=== PATIENT | female | born 1980 | race African-American/Black ===

== ENCOUNTER 2017-04-09 09:20 | Emergency (ER) | payer BC ==
[2017-04-09 09:32] VITALS: BP 118/70; PULSE 88; TEMP 99.4; BMI 24.5
--- NOTE | 2017-04-09 09:59 | PDOC ---
History of Present Illness - General Chief Complaint: Cold Symptoms Stated Complaint: COUGH, CONGESTION, BODY ACHES Time Seen by Provider: 04/09/17 09:51 History Source: Patient Exam Limitations: No Limitations - History of Present Illness Initial Comments: 04/09/17 09:55 Pt presents to the ED complaining of a 3 day history of nasal congestion, cough productive of yellow sputum, sore throat and myalgias. Also complains of subjective fevers at home. Complains of nausea and epigastric abdominal pain that occurs with cough only. Able to tolerate PO. 04/09/17 09:59 Past History - Past Medical History Allergies/Adverse Reactions: Allergies Allergy/AdvReac Type Severity Reaction Status Date / Time No Known Allergies Allergy Verified 04/09/17 09:27 Home Medications: Ambulatory Orders NK [No Known Home Medication] 04/09/17 Disorders: Yes (OVARIAN CYSTS) - Surgical History Abdominal Surgery: Yes (HERNIA REPAIR) - Suicide/Smoking/Psychosocial Hx Smoking Status: No Smoking History: Never smoked Number of Cigarettes Smoked Daily: 0 Hx Alcohol Use: No Drug/Substance Use Hx: No Substance Use Type: None Review of Systems - Review of Systems Able to Perform ROS?: Yes Is the patient limited Amharic proficient: No Constitutional: Yes: Chills, Malaise HEENTM: Yes: Ear Pain, Nose Congestion, Throat Pain Respiratory: Yes: Cough ABD/GI: Yes: Nausea. No: Symptoms Reported, See HPI, Abdominal Distended, Abd. Pain w/ defecation, Blood Streaked Bowels, Constipated, Diarrhea, Difficulty Swallowing, Poor Appetite, Poor Fluid Intake, Rectal Bleeding, Vomiting, Indigestion, Abdominal cramping, Tarry Stools, Other *Physical Exam - Vital Signs Last Vital Signs Temp Pulse Resp BP Pulse Ox 99.4 F 88 15 118/70 98 04/09/17 09:26 04/09/17 09:26 04/09/17 09:26 04/09/17 09:26 04/09/17 09:26 - Physical Exam General Appearance: Yes: Nourished, Appropriately Dressed HEENT: positive: Pharyngeal Erythema, Tonsillar Erythema, Nasal Congestion. negative: EOMI, KEYANNA, Normal ENT Inspection, Normal Voice, Symmetrical, TMs Normal, Pharynx Normal, Pale Conjunctivae, Photophobia, Scleral Icterus (R), Scleral Icterus (L), Muffled/Hoarse voice, Tonsillar Exudate, Rhinorrhea, Sinus Tenderness, Orbits, Hearing Decreased, Hearing Grossly Normal, TM Bulging, TM Dull, TM Erythema, Lesions, Parra, Excessive drooling, Thrush, Other Neck: positive: Supple. negative: Tender, Trachea midline, Normal Thyroid, Rigid, Carotid bruit, Decreased range of motion, Stridor, Lymphadenopathy (R), Lymphadenopathy (L), Rigidity, Tender lateral, Tender midline, Thyromegaly, Other Respiratory/Chest: positive: Lungs Clear, Normal Breath Sounds. negative: Chest Tender, Respiratory Distress, Accessory Muscle Use, Labored Respiration, Rapid RR, Decreased Breath Sounds, Paradoxal Breathing, Crackles, Rales, Rhonchi , Stridor, Wheezing, Hyperresonant, Dullness, Plerual Rub, Other Cardiovascular: positive: Regular Rhythm, Regular Rate. negative: S1, S2, Edema , JVD, Murmur, Bradycardia, Tachycardia, Diastolic Murmur, Systolic Murmur, Gallop/S3, Gallop/S4, Irregularly Irregular, Irregular, Other Gastrointestinal/Abdominal: positive: Flat, Soft. negative: Normal Bowel Sounds , Tender, Organomegaly, Pulsatile Mass, Increased Bowel Sounds, Decreased BS, Protuberent, Distended, Guarding, Rebound, Tenderness, Hernia, Mass, Hepatomegaly, Spleenomegaly, Other Musculoskeletal: positive: Normal Inspection Extremity: positive: Normal Inspection Integumentary: positive: Normal Color, Dry, Warm Neurologic: positive: Fully Oriented, Alert, Normal Mood/Affect Medical Decision Making - Medical Decision Making 04/09/17 10:02 Pt presents to the ED with symptoms consistent with viral URI. Exam is remarkable only for pharyngeal erythema. Will discharge home. *DC/Admit/Observation/Transfer Diagnosis at time of Disposition: Viral syndrome - Discharge Dispostion Disposition: HOME Condition at time of disposition: Good Admit: No - Patient Instructions Printed Discharge Instructions: DI for Viral Upper Respiratory Infection -- Adult Additional Instructions: return to the ED for severe shortness of breath, severe sore throat unable to swallow or breathe. Follow up with your doctor. - Post Discharge Activity Forms/Work/School Notes: Back to Work
== END 2017-04-09 10:14 | disposition home or self-care (01) ==
LOC: FER 09:20
DX: B34.9 Viral infection, unspecified (principal)
CPT/HCPCS: 99282-25

== ENCOUNTER 2020-09-21 04:29 | Day surgery (SDC) | payer BC ==
[2020-09-19 18:41] VITALS: BMI 24.7
[2020-09-21] MEDS ORDERED: IOHEXOL 180 MG/1 ML ML IJ ONE (09:27)
[2020-09-21] MEDS ORDERED: LIDOCAINE HCL 1% PRESERVATIVE FREE - 30ML VIAL IJ ONE (09:27)
[2020-09-21 09:56] VITALS: BP 114/63; PULSE 82; TEMP 98
[2020-09-21] MEDS ORDERED: LIDOCAINE HCL/PF 1% SDV 5ML VIAL ONE (13:43)
[2020-09-21] MEDS ORDERED: DEXAMETHASONE SOD PHOSPHATE 4 MG/1 ML VIAL ONE (13:43)
== END 2020-09-21 11:05 | disposition home or self-care (01) ==
LOC: JASU-SURG 04:29
PROVIDERS: ATTEND Pain Medicine Pain Medicine
PROC: 3E0R33Z Introduction of Anti-inflammatory into Spinal Canal, Percutaneous Approach (ICD-10-PCS; 2020-09-21)
PROC: 3E0R3BZ Introduction of Anesthetic Agent into Spinal Canal, Percutaneous Approach (ICD-10-PCS; principal; 2020-09-21 09:00)
DX: M54.16 Radiculopathy, lumbar region (principal)
CPT/HCPCS: 76000-TC-FY; 81025

== ENCOUNTER 2022-07-28 12:02 | Emergency (ER) | payer BC ==
[2022-07-28 12:23] VITALS: BP 124/84; PULSE 74; RESP 16; TEMP 99.1; BMI 23.8
== END 2022-07-28 12:32 | disposition home or self-care (01) ==
LOC: FER 12:02
DX: S41.102A Unspecified open wound of left upper arm, initial encounter (principal); Y99.8 Other external cause status
CPT/HCPCS: 76882-TC-LT; 99283-25

== ENCOUNTER 2023-12-06 10:53 | Emergency (ER) | payer BC ==
[2023-12-06 10:58] VITALS: BP 138/93; PULSE 90; RESP 20; TEMP 97.6; BMI 25.6
== END 2023-12-06 11:51 | disposition home or self-care (01) ==
LOC: FER 10:53
DX: R05.9 Cough, unspecified (principal); R42 Dizziness and giddiness; B34.9 Viral infection, unspecified
CPT/HCPCS: 71046-TC-FY; 93005; 99284-25